=== PATIENT | female | born 1970 | race Hispanic/Latino ===

== ENCOUNTER 2019-08-13 21:00 | Emergency (ER) | payer SELFPAY ==
[2019-08-13] MEDS ORDERED: Silver Nitrate Application 1 EACH ONE ×2 (21:15→21:16)
[2019-08-13] MEDS ORDERED: Activated Charcoal/Sorbitol 25 GM/120 ML TUBE ONE (21:27)
[2019-08-13] MEDS ORDERED: Oxymetazoline HCl 0.05% (30 ML BOT) ONE (21:27)
== END 2019-08-13 21:40 | disposition home or self-care (01) ==
LOC: MADERS 21:00 → EDBD 21:00 → MADERS 21:40
DX: J06.9 Acute upper respiratory infection, unspecified (principal); R04.0 Epistaxis
CPT/HCPCS: 99283

== ENCOUNTER 2020-02-16 22:55 | Emergency (ER) | payer OTHER, SELFPAY ==
[2020-02-16] MEDS ORDERED: Azithromycin 250 MG TAB ONE (23:35)
== END 2020-02-16 23:47 | disposition home or self-care (01) ==
LOC: MADERS 22:55
DX: J20.9 Acute bronchitis, unspecified (principal); M17.0 Bilateral primary osteoarthritis of knee; G43.909 Migraine, unspecified, not intractable, without status migrainosus; F32.9 Major depressive disorder, single episode, unspecified; F41.9 Anxiety disorder, unspecified
CPT/HCPCS: 96372; 99283; J1040

== ENCOUNTER 2021-04-11 17:18 | Emergency (ER) | payer SELFPAY ==
[2021-04-11] MEDS ORDERED: Acetaminophen 500 MG TAB ONE (18:01)
[2021-04-11] MEDS ORDERED: Doxycycline 100 MG CAP ONE (18:01)
== END 2021-04-11 18:31 | disposition home or self-care (01) ==
LOC: MADERS 17:18
DX: T63.301A Toxic effect of unspecified spider venom, accidental (unintentional), initial encounter (principal)
CPT/HCPCS: 99282

== ENCOUNTER 2022-01-07 12:56 | Emergency (ER) | payer SELFPAY ==
[2022-01-07] MEDS ORDERED: Silver Nitrate Application 1 EACH ONE (13:16)
== END 2022-01-07 13:45 | disposition home or self-care (01) ==
LOC: MADERS 12:56
DX: R04.0 Epistaxis (principal); M19.90 Unspecified osteoarthritis, unspecified site
CPT/HCPCS: 99283

== ENCOUNTER 2022-04-05 12:17 | Emergency (ER) | payer SELFPAY ==
[2022-04-05] MEDS ORDERED: Fluorescein Opthalmic Strip ONE (12:40)
[2022-04-05] MEDS ORDERED: Tetracaine 0.5% PF 4 ML BOT ONE ×2 (12:40→15:47)
[2022-04-05] MEDS ORDERED: AcetaZOLAMIDE 250 MG TAB PO SCH (15:15)
== END 2022-04-05 16:17 | disposition home or self-care (01) ==
LOC: MADERS 12:17
DX: H40.20X0 Unspecified primary angle-closure glaucoma, stage unspecified (principal); M19.90 Unspecified osteoarthritis, unspecified site; Z85.841 Personal history of malignant neoplasm of brain; Z79.899 Other long term (current) drug therapy
CPT/HCPCS: 99283